=== PATIENT | female | born 1975 | race Caucasian/White ===

== ENCOUNTER 2016-12-24 08:28 | Emergency (ER) | payer MEDICAID ==
--- NOTE | 2016-12-24 08:57 | ED Physician Chart ---
Chief Complaint/HPI - Patient Information Date Seen:: 12/24/16 Time Seen:: 08:53 Chief Complaint:: low abd discomfort History of Present Illness:: pt here for discomfort at low mid pelvis x 1 week. pain radiates toward sides. no trouble w walking. she had similar pains last week and has had relief w motrin. she notes dysuria and frequency. lmp was on 11 and was reg/nrml. no vag dc. no constipation. no diarrhea. no fever. no n/v. no love pmh. no reg meds. Allergies:: Allergies Allergy/AdvReac Type Severity Reaction Status Date / Time No Known Allergies Allergy Verified 12/30/15 00:27 Vitals:: Vital Signs - 8 hr 12/24/16 08:40 Temp 97 F HR 72 RR 16 BP 121/56 O2 Sat % 99 Historian:: Patient Review of Systems - Review of Systems General/Constitutional: No fever, No chills, No weight loss, No weakness, No diaphoresis, No edema, No loss of appetite Skin: No skin lesions, No rash, No bruising Head: No headache, No light-headedness Eyes: No loss of vision, No pain, No diplopia ENT: No earache, No nasal drainage, No sore throat, No tinnitus Neck: No neck pain, No swelling, No thyromegaly, No stiffness, No mass noted Cardio Vascular: No chest pain, No palpitations, No PND, No orthopnea, No edema Pulmonary: No SOB, No cough, No sputum, No wheezing GI: No nausea, No vomiting, No diarrhea, Pain, No melena, No hematochezia, No constipation, No hematemesis G/U: Dysuria, Frequency, No hematuria Musculoskeletal: No bone or joint pain, No back pain, No muscle pain Endocrine: No polyuria, No polydipsia Psychiatric: No prior psych history, No depression, No anxiety, No suicidal ideation Hematopoietic: No bruising, No lymphadenopathy Allergic/Immuno: No urticaria, No angioedema Neurological: No syncope, No focal symptoms, No weakness, No paresthesia, No headache, No seizure, No dizziness, No confusion, No vertigo Past Medical History - Past Medical History Past Medical History: No significant medical hx Social History: Non Smoker, No Alcohol Medication: Reviewed Family Medical History - Family Member Mother Ethnicity: Living Status: Still Living Hx Family Cancer: No Other Medical History: no med. prob. Physical Exam - Physical Examination General/Constitutional: Awake, Well-developed, well-nourished, Alert, No distress, GCS 15, Non-toxic appearing, Ambulatory Other Gen/Cons comments:: mod obese. wn/wh. alert. nontoxic. pt ambulates easily w no sign of discomfort. Head: Atraumatic Eyes: Lids, conjuctiva normal, PERRL, EOMI Skin: Nl inspection, No rash, No skin lesions, No ecchymosis, Well hydrated, No lymphadenopathy ENMT: External ears, nose nl, Nasal exam nl, Lips, teeth, gums nl Neck: Nontender, Full ROM w/o pain, No JVD, No nuchal rigidity, No bruit, No mass, No stridor Respiratory: Nl effort/Exclusion, Clear to Auscultation, No Wheeze/Rhonchi/Rales Cardio Vascular: RRR, No murmur, gallop, rubs, NL S1 S2 GI: No tenderness/rebounding/guarding, No organomegaly, No hernia, Normal BS's, Nondistended, No mass/bruits, No McBurney tenderness Other GI comments:: vague mild tndr w mid low pelvis palpitation : No CVA tenderness Extremities: No tenderness or effusion, Full ROM, normal strength in all extremities, No edema, Normal digits & nails Neuro/Psych: Alert/oriented, DTR's symmetric, Normal sensory exam, Normal motor strength, Judgement/insight normal, Mood normal, Normal gait, No focal deficits Misc: normal gait, Normal back, No paraspinal tenderness Labs/Radiology/EKG Results - Lab Results Results: Laboratory Results - last 24 hr 12/24/16 12/24/16 12/24/16 08:53 08:55 08:55 Urine Source CLEAN C Urine Color YELLOW Urine Clarity SL. CLOUDY Urine pH 6.0 Ur Specific [place] 1.025 Urine Protein 30 H Urine Glucose (UA) NEGATIVE Urine Ketones NEGATIVE Urine Blood LARGE H Urine Nitrate POSITIVE H Urine Bilirubin NEGATIVE Urine Urobilinogen 0.2 Ur Leukocyte Esterase MODERATE H Urine RBC 6-10 Urine WBC 50-100 H Ur Epithelial Cells MODERATE Urine Bacteria MANY Urine Test NEGATIVE POC Ur Test Negative ED Septic Shock - . Is Septic Shock (SBP<90, OR Lactate>4 mmol\L) present?: No - <6hrs of presentation: Vital Signs: Vital Signs - 8 hr 12/24/16 08:40 Temp 97 F HR 72 RR 16 BP 121/56 O2 Sat % 99 Reassessment (Disposition) - Reassessment Reassessment:: results reviewed w pt. rx cipro, pyridium. may use motrin for pain prn. return if worse pain, fever, n/v. weakness...else worse... Reassessment Condition:: Improved - Diagnosis Diagnosis:: uti - Aftercare/Follow up Instructions Aftercare/Follow-Up Instructions:: Counseled pt regarding lab results/diagnosis & need follow up - Patient Disposition Discharge/Transfer:: Home Condition at Disposition:: Improved
[2016-12-24 09:24] LABS: URINE BILIRUBIN NEGATIVE (NEGATIVE); URINE BLOOD LARGE (NEGATIVE); URINE COLOR YELLOW; URINE GLUCOSE (UA) NEGATIVE (NEGATIVE); URINE KETONE NEGATIVE (NEGATIVE); URINE PROTEIN 30 mg/dL (NEGATIVE); URINE UROBILINOGEN 0.2 E.U./dL (0.2 - 1.0)
[2016-12-24 09:28] LABS: URINE BACTERIA MANY /hpf (NONE SEEN); URINE EPITHELIAL CELLS MODERATE /lpf (FEW); URINE WBC 50-100 /hpf (0-5)
== END 2016-12-24 10:19 | disposition home or self-care (01) ==
LOC: ER 08:28
DX: N39.0 Urinary tract infection, site not specified (principal)
CPT/HCPCS: 81001-TC; 81025-TC; 87086-90; Z7502; Z7610

== ENCOUNTER 2017-03-30 15:25 | Emergency (ER) | payer MEDICAID ==
--- NOTE | 2017-03-30 16:17 | ED Physician Chart ---
ED Chief Complaint/HPI - Patient Information Date Seen:: 03/30/17 Time Seen:: 15:40 Chief Complaint:: Abdominal pain. History of Present Illness:: Pt is Indonesian speaking. Interpretation is provided by our nurse from [facility] Ms Deisy Weiner. Pt came in by private auto because of onset of L flank pain 3 days ago, characterized as constant, sharp, with ? radiation to L groin. No fever, or N/V/D. Pt has dysuria. No urgency or frequency with urination. No gross hematuria. Last BM this morning that was normal in color/consistency. No hematochezia or melena. No vaginal bleeeding or discharge. LNMP 03/07/17. Allergies:: Allergies Allergy/AdvReac Type Severity Reaction Status Date / Time No Known Allergies Allergy Verified 03/30/17 15:28 Vitals:: Vital Signs - 8 hr 03/30/17 15:25 Temp 97.6 F HR 76 RR 18 BP 138/64 O2 Sat % 100 Historian:: Patient Family MD/PCP:: Mikel Acuna. LMP:: 03/07/17 Review:: Nurse's Note Reviewed ED Review of Systems - Review of Systems General/Constitutional: No fever, No weight loss, No weakness, No edema, No loss of appetite Skin: No rash, No bruising Head: No headache, No light-headedness Eyes: No loss of vision, No pain ENT: No earache, No nasal drainage, No sore throat Neck: No neck pain, No swelling, No thyromegaly, No stiffness, No mass noted Cardio Vascular: No chest pain, No palpitations, No edema Pulmonary: No SOB, No cough, No wheezing GI: No nausea, No vomiting, No diarrhea, Pain, No melena, No hematochezia, No constipation G/U: Dysuria (?), No frequency, No hematuria Shake Loader: No vaginal discharge, No abnormal vaginal bleed Musculoskeletal: No bone or joint pain, No back pain Endocrine: No polyuria, No polydipsia Psychiatric: No prior psych history Hematopoietic: No bruising, No lymphadenopathy Allergic/Immuno: No urticaria, No angioedema Neurological: No syncope, No focal symptoms, No weakness, No paresthesia, No headache, No dizziness, No confusion ED Past Medical History - Past Medical History Past Medical History: No significant medical hx Social History: Non Smoker, No Alcohol, No Drug Use, Single, Employed, Other ( lives with her brother and children.) Employment:: packing. Surgical History: None Psychiatricy History: None Medication: Reviewed Family Medical History - Family Member Mother History Unknown: Yes Ethnicity: Living Status: Still Living Hx Family Cancer: No ED Labs/Radiology/EKG Results - Lab Results Results: Laboratory Tests 03/30/17 03/30/17 03/30/17 16:00 16:43 16:43 WBC 6.0 RBC 3.90 Hgb 12.3 Hct 35.9 L MCV 92.2 MCH 31.5 H MCHC Differential 34.1 RDW 12.7 Plt Count 225 MPV 8.6 Neutrophils % 47.0 Lymphocytes % 40.7 Monocytes % 10.6 H Eosinophils % 1.2 Basophils % 0.5 PT 9.9 INR 0.95 PTT (Actin FS) 25.1 L Sodium Potassium Chloride Carbon Dioxide Anion Gap BUN Creatinine Est GFR ( Amer) Est GFR (Non-Af Amer) BUN/Creatinine Ratio Glucose Calcium Total Bilirubin AST ALT Alkaline Phosphatase Total Protein Albumin Globulin Albumin/Globulin Ratio Urine Source [place] Urine Color YELLOW Urine Clarity CLEAR Urine pH 6.0 Ur Specific [place] 1.025 Urine Protein NEGATIVE Urine Glucose (UA) NEGATIVE Urine Ketones NEGATIVE Urine Blood NEGATIVE Urine Nitrate NEGATIVE Urine Bilirubin NEGATIVE Urine Urobilinogen 1.0 Ur Leukocyte Esterase NEGATIVE Urine RBC NONE SEEN Urine WBC 0-2 Ur Epithelial Cells FEW Urine Bacteria OCCASIONAL 03/30/17 16:43 WBC RBC Hgb Hct MCV MCH MCHC Differential RDW Plt Count MPV Neutrophils % Lymphocytes % Monocytes % Eosinophils % Basophils % PT INR PTT (Actin FS) Sodium 135 L Potassium 4.0 Chloride 106 Carbon Dioxide 26.9 Anion Gap 6.1 L BUN 13 Creatinine 0.6 Est GFR ( Amer) > 60.0 Est GFR (Non-Af Amer) > 60.0 BUN/Creatinine Ratio 21.7 Glucose 102 Calcium 8.9 Total Bilirubin 0.5 AST 15 ALT 18 Alkaline Phosphatase 60 Total Protein 7.0 Albumin 3.9 Globulin 3.1 Albumin/Globulin Ratio 1.3 Urine Source Urine Color Urine Clarity Urine pH Ur Specific [place] Urine Protein Urine Glucose (UA) Urine Ketones Urine Blood Urine Nitrate Urine Bilirubin Urine Urobilinogen Ur Leukocyte Esterase Urine RBC Urine WBC Ur Epithelial Cells Urine Bacteria - Radiology Results Results: CT abdomen/pelvis without contrast: Fatty infiltration in liver. Mildly dilated debris filled stomach. Significance should be correlated clinically. . Mildly distended stool-filled ascending colon. Official report per Dr. Berto Taylor, radiologist. This report has been further confirmed with Dr. Taylor by phone per my nurse Joce. ED Septic Shock - . Is Septic Shock (SBP<90, OR Lactate>4 mmol\L) present?: No - <6hrs of presentation: Vital Signs: Vital Signs - 8 hr 03/30/17 15:25 Temp 97.6 F HR 76 RR 18 BP 138/64 O2 Sat % 100 ED Reassessment (Disposition) - Reassessment Reassessment:: 1805 Pt has been repeatedly evaluated. Pt is now pain free. Awaiting CT report. 1949 Pt has been pain free. No N/V/D. Pt has been ambulatory without difficulty. CT report just became available. Lab and CT findings have been reviewed with pt. Pt requests to go home now and does not want further observation/management in hospital. Aftercare instructions have been given. Interpretation is provided by staff member Berta. Reassessment Condition:: Improved - Diagnosis Diagnosis:: Transient L flank pain related to fecal impaction vs spontaneous passage of renal stone. Stable and currently asymptomatic. - Aftercare/Follow up Instructions Aftercare/Follow-Up Instructions:: Refer to Discharge Instructions Notes:: Strain all urines. If renal stone is isolated, save and send to lab for chemical analysis. Bedrest today. Clear liquid diet today. May use fleet enema one per rectum q 15 mins x 3 as needed as directed. Abdominal pain instructions given. F/U with PCP at [facility] in one day for recheck. Return to ER immediately if condition worsens or if any further questions/problems Medication Prescribed:: None - Patient Disposition Discharge/Transfer:: Home Time:: 20:00 Condition at Disposition:: Stable, Improved
[2017-03-30 16:50] LABS: % BASOPHILS 0.5 % (0.0-2.0); % EOSINOPHILS 1.2 % (0.0-5.0); % LYMPHOCYTES 40.7 % (20.0-50.0); % MONOCYTES 10.6 % (2.0-10.0); HEMATOCRIT 35.9 % (41.0-60); HEMOGLOBIN 12.3 gm/dL (12-16); MEAN CELL VOLUME 92.2 fl (81-100); MEAN CORPUSCULAR HEMOGLOBIN 31.5 pg (27.0-31.0); MEAN CORPUSCULAR HGB CONC 34.1 pg (28.0-36.0); MEAN PLATELET VOLUME 8.6 fl; NEUTROPHILE ABSOLUTE 2.9 Th/cmm (1.8-8.0); PLATELET COUNT 225 Th/cmm (150-400); RED CELL DISTRIBUTION WIDTH 12.7 % (11.5-20.0)
[2017-03-30 17:02] LABS: INR 0.95 (0.5-1.4); PROTHROMBIN TIME (TEST) 9.9 SECONDS (9.5-11.5)
[2017-03-30 17:04] LABS: ALB/GLOB RATIO 1.3 (1.0-1.8); ALKALINE PHOSPHATASE 60 U/L (34-104); ANION GAP 6.1 (7.0-16.0); BILIRUBIN,TOTAL 0.5 mg/dL (0.3-1.0); BUN - UREA NITROGEN 13 mg/dL (7-25); BUN/CREATININE RATIO 21.7; CALCIUM SERUM 8.9 mg/dL (8.6-10.3); CARBON DIOXIDE 26.9 mEq/L (21.0-31.0); CHLORIDE 106 mEq/L (98-107); CREATININE - SERUM 0.6 mg/dL (0.6-1.2); GLUCOSE 102 mg/dL (70-105); SGOT 15 U/L (13-39); SGPT/ALT 18 U/L (7-52); SODIUM SERUM 135 mEq/L (136-145)
[2017-03-30 17:21] LABS: URINE BILIRUBIN NEGATIVE (NEGATIVE); URINE BLOOD NEGATIVE (NEGATIVE); URINE GLUCOSE (UA) NEGATIVE (NEGATIVE); URINE KETONE NEGATIVE (NEGATIVE); URINE PROTEIN NEGATIVE (NEGATIVE)
[2017-03-30 17:26] LABS: URINE COLOR YELLOW
[2017-03-30 17:27] LABS: URINE BACTERIA OCCASIONAL /hpf (NONE SEEN); URINE EPITHELIAL CELLS FEW /lpf (FEW); URINE RBC NONE SEEN /hpf (0-5); URINE WBC 0-2 /hpf (0-5)
--- NOTE | 2017-03-31 09:35 | Diagnostic Imaging Report ---
CT abdomen and pelvis without intravenous contrast Indication: Left flank pain Comparison: CT abdomen and pelvis on 12/30/2015, Technique: Axial images were obtained from the lung bases to the bilateral proximal femurs without IV contrast. Coronal reconstructions were made. total DLP: [id number], CTDI14.7 FINDINGS: 3 mm calcified granuloma of the left lung base is again noted. Hypoventilatory atelectatic changes of the lung bases are also noted. Assessment of solid organs is limited due to lack of IV contrast. There is diffuse fatty infiltration of the liver with focal area of fatty sparing along the gallbladder fossa region. No discrete focal lesions identified. No focal splenic or pancreatic lesions. No focal adrenal lesions. No evidence of hydronephrosis or nephrolithiasis. Distended stomach is noted with fluid contents. There is diverticulosis and mild bowel wall thickening and mild inflammatory change seen along the left lower quadrant with haziness of the regional fat planes. Trace free fluid is seen. No evidence of free air. No evidence of appendicitis. The osseous structures demonstrate no acute abnormalities. IMPRESSION: Diverticulosis with mild bowel wall thickening and surrounding inflammatory change seen along the distal descending colon/proximal sigmoid colon and. Findings are consistent with mild diverticulitis. No evidence of free air or abscess formation. Trace free fluid is noted. Distended stomach with food contents. Hepatic steatosis.
== END 2017-03-30 19:50 | disposition home or self-care (01) ==
LOC: ER 15:25
DX: R10.9 Unspecified abdominal pain (principal)
CPT/HCPCS: 99285; 96374; 74176; 36415; 85025; 85610; 81001; 80053; J1885